=== PATIENT | female | born 1990 ===

== ENCOUNTER 2017-05-31 19:48 | Emergency (ER) | payer SELFPAY ==
[2017-05-31 19:56] VITALS: BP 132/82; PULSE 95; RESP 16; TEMP 98.7; O2SAT 100
--- NOTE | 2017-05-31 20:16 | ED PDOC ---
HPI: Abdomen Time Seen by Provider: 05/31/17 20:10 Chief Complaint (Nursing): Abdominal Pain Chief Complaint (Provider): abdominal pain History Per: Patient History/Exam Limitations: no limitations Onset/Duration Of Symptoms: Days (2) Current Symptoms Are (Timing): Still Present Location Of Pain/Discomfort: RLQ, LLQ, Suprapubic Quality Of Discomfort: Burning, "Pain" Associated Symptoms: Urinary Symptoms Additional History Per: Patient Additional Complaint(s): 26 y/o female presents with diffuse lower abdominal pain x 2 days. Associated dysuria. Denies fever, nausea/vomiting, chest pain, changes in bowel movements , recent travel, sick contacts. Past Medical History Reviewed: Historical Data, Nursing Documentation, Vital Signs Vital Signs: Last Vital Signs Temp 98.7 F 05/31/17 19:53 Pulse 95 H 05/31/17 19:53 Resp 16 05/31/17 19:53 BP 132/82 05/31/17 19:53 Pulse Ox 100 05/31/17 23:32 - Medical History PMH: No Chronic Diseases - Surgical History Surgical History: No Surg Hx - Family History Family History: States: No Known Family Hx - Home Medications Home Medications: Ambulatory Orders Medication Instructions Recorded Nitrofurantoin Macrocrystals 100 mg PO BID #13 cap 05/31/17 [Macrobid] - Allergies Allergies/Adverse Reactions: Allergies Allergy/AdvReac Type Severity Reaction Status Date / Time No Known Allergies Allergy Verified 05/31/17 20:14 Review of Systems ROS Statement: Except As Marked, All Systems Reviewed And Found Negative Gastrointestinal: Positive for: Abdominal Pain Genitourinary Female: Positive for: Dysuria Physical Exam - Reviewed Nursing Documentation Reviewed: Yes Vital Signs Reviewed: Yes - Physical Exam Appears: Positive for: Well, Non-toxic, No Acute Distress Head Exam: Positive for: ATRAUMATIC, NORMAL INSPECTION, NORMOCEPHALIC Skin: Positive for: Normal Color Eye Exam: Positive for: Normal appearance ENT: Positive for: Normal ENT Inspection Cardiovascular/Chest: Positive for: Regular Rate, Rhythm Respiratory: Positive for: Normal Breath Sounds Gastrointestinal/Abdominal: Positive for: Tenderness (diffuse lower discomfort to palpation), Distended Back: Positive for: Normal Inspection Extremity: Positive for: Normal ROM Neurologic/Psych: Positive for: Alert, Oriented - Laboratory Results Result Diagrams: 05/31/17 21:47 05/31/17 21:47 - ECG O2 Sat by Pulse Oximetry: 100 - Progress ED Course And Treament: labs, urine, ob/us EXAM: US After First Trimester CLINICAL HISTORY: 26 years old, female; Pain; complicated by abdominal or pelvic pain; Lower; Second trimester; Gestational age or lmp: [id number]; ; Patient HX: Irregular periods. States lmp 04/22/17 irregular 1 day TECHNIQUE: Real-time obstetrical ultrasound of the maternal pelvis and a second or third trimester with image documentation. COMPARISON: No relevant prior studies available. FINDINGS: Fetus: There is a single living intrauterine . Heart rate: Embryonic/ cardiac activity is identified, at a rate of 167 beats per minute. Presentation: Presentation is breech. Placenta: The placenta is located anteriorly and is normal. No abruption. Amniotic fluid: Unremarkable. Anatomy: Bladder, kidneys, cord insertion are unremarkable BIOMETRICS Gestational age by US: Measurements correlate with a mean gestational age of 19 weeks 2 days.The estimated date of delivery is October 23, 2017. EFW: 286 g MATERNAL: Uterus: Unremarkable. No myometrial mass. Cervix: Unremarkable as visualized. Closed measuring 4.2 cm. Free fluid: No free fluid. IMPRESSION: Live intrauterine , with no evidence of early complications. Thank you for allowing us to participate in the care of your patient. Lanret educated on findings, discharged with rx Macrobid (dose given in ED). Advised follow up [employer] Return to ED for worsening/concerning symptoms. Disposition - Clinical Impression Clinical Impression: UTI (urinary tract infection), Abdominal pain during - Patient ED Disposition Is Patient to be Admitted: No Counseled Patient/Family Regarding: Studies Performed, Diagnosis, Need For Followup, Rx Given - Disposition [facility]errals[facility] Disposition: Routine/Home Disposition Time: 23:50 Condition: STABLE Prescriptions: Nitrofurantoin Macrocrystals [Macrobid] 100 mg PO BID #13 cap Instructions: Urinary Tract Infection in Women (ED), Abdominal Pain in (ED) Print Language: SRI LANKAN
[2017-05-31 20:52] LABS: RBC URINE 47 /hpf (0-3); URINE BACTERIA RARE (<OCC); URINE BILIRUBIN NEGATIVE (NEGATIVE); URINE BLOOD MODERATE (NEGATIVE); URINE COLOR YELLOW (YELLOW); URINE GLUCOSE (UA) 50 mg/dL (Normal); URINE KETONE NEGATIVE (NEGATIVE); URINE LEUKOCYTE ESTERASE MOD Leu/uL (Negative); URINE PROTEIN 100 mg/dL (NEGATIVE); URINE UROBILINOGEN 0.2-1.0 mg/dL (0.2-1.0); WBC URINE 56 /hpf (0-5)
[2017-05-31 21:52] LABS: BASO % 0.3 % (0.0-2.0); EOS # 0.2 K/uL (0.0-0.7); EOS % 1.8 % (0.0-4.0); LYMPH # 2.2 K/uL (1.0-4.3); LYMPH % 18.1 % (20.0-40.0); MEAN CELL VOLUME 94.9 fl (81.0-99.0); MEAN CORPUSCULAR HEMOGLOBIN 31.9 pg (27.0-31.0); MEAN CORPUSCULAR HGB CONC 33.6 g/dL (33.0-37.0); MEAN PLATELET VOLUME 8.3 fl (7.2-11.7); MONO # 0.9 K/uL (0.0-0.8); MONO % 7.2 % (0.0-10.0); NEUT # 8.9 K/uL (1.8-7.0); NEUT % 72.6 % (50.0-75.0); RED CELL DISTRIBUTION WIDTH 13.1 % (11.5-14.5); WHITE BLOOD COUNT 12.2 K/uL (4.8-10.8)
[2017-05-31 22:02] LABS: ALB/GLOB RATIO 1.2 (1.0-2.1); ALKALINE PHOSPHATASE 75 U/L (38-126); ALT/SGPT 45 U/L (9-52); AST/SGOT 37 U/L (14-36); BILIRUBIN,TOTAL 0.1 mg/dl (0.2-1.3); BLOOD UREA NITROGEN 8 mg/dl (7-17); CALCIUM 9.2 mg/dL (8.4-10.2); CARBON DIOXIDE 22 mmol/L (22-30); CHLORIDE 106 mmol/L (98-107); GFR AFRICAN-AMERICAN > 60; GLUCOSE,RANDOM 75 mg/dL (65-105); POTASSIUM 3.8 MMOL/L (3.6-5.0); SODIUM 139 mmol/l (132-148)
--- NOTE | 2017-06-01 10:11 | US ---
PROCEDURE: Obstetrical ultrasound examination HISTORY: pelvic pain COMPARISON: Not available TECHNIQUE: Transabdominal FINDINGS: There is a single live intrauterine gestation in breech presentation. The heart rate is 158 beats per minute. A normal anterior placenta is identified. There is no evidence of placenta previa. The cervix is closed and measures 4.2 cm in length. Normal quantity of amniotic fluid is appreciated. The KADY is 9.9 cm. biometry yields a gestational age by ultrasound of 19 weeks 2 days. The GINGER is 10/23/2017. The EFW is 286.75 g. Limited review of anatomy demonstrates fluid within the stomach and urinary bladder. kidneys are not well documented. Four-chamber heart is not well documented. A three-vessel umbilical cord is demonstrated. No gross abnormality of the spine is evident. The anterior abdominal wall is intact. Please note that neither the right nor the left ovary could be visualized by transabdominal examination. IMPRESSION: Single live intrauterine gestation of approximately 19 weeks 2 days without gross anatomic abnormality. Evaluation of anatomy was limited. Anterior placenta. No previa. Normal amniotic fluid volume. Breech presentation. Cervix closed. Preliminary interpretation of this examination was reported by [facility] at 11:23 p.m. on 05/31/2017. There is concurrence of this report with the preliminary interpretation.
== END 2017-06-01 00:17 | disposition home or self-care (01) ==
LOC: H.ER 19:48
DX: O23.40 Unspecified infection of urinary tract in pregnancy, unspecified trimester (principal); O32.1XX0 Maternal care for breech presentation, not applicable or unspecified